=== PATIENT | male | born 1990 | race African-American/Black ===

== ENCOUNTER 2017-04-30 16:51 | Emergency (ER) | payer SELFPAY ==
[2017-04-30 16:58] VITALS: BP 131/73; PULSE 95; TEMP 98; BMI 28.1
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
== END 2017-04-30 21:09 | disposition home or self-care (01) ==
LOC: JERFT 16:51
DX: M19.122 Post-traumatic osteoarthritis, left elbow (principal); R20.2 Paresthesia of skin; M79.602 Pain in left arm; F17.210 Nicotine dependence, cigarettes, uncomplicated
CPT/HCPCS: 70450-TC; 72125-TC; 73070-TC-LT; 73090-TC-LT; 73110-TC-LT; 73130-TC-LT; 99281-25

== ENCOUNTER 2017-08-24 09:01 | Emergency (ER) | payer OTHER ==
[2017-08-24 09:10] VITALS: BP 129/69; PULSE 93; TEMP 97.9; BMI 29.0
[2017-08-24] MEDS ORDERED: AZITHROMYCIN 1 GM PACKET PO ONE (10:22)
--- NOTE | 2017-08-24 10:23 | PDOC ---
History of Present Illness - General Chief Complaint: Toothache Stated Complaint: Toothache Time Seen by Provider: 08/24/17 10:08 History Source: Patient Exam Limitations: No Limitations - History of Present Illness Initial Comments: 08/24/17 10:18 27 yr male states he had unprotected sexual intercourse on and today has urinary urgency and "a drip". Pt denies abd pain denies testicel pain or swelling. Pt has history of chlamydia GC in the past. Pt states last HIV test was 3 months ago and was negative. Past History - Past Medical History Allergies/Adverse Reactions: Allergies Allergy/AdvReac Type Severity Reaction Status Date / Time No Known Allergies Allergy Verified 08/24/17 09:10 Home Medications: Ambulatory Orders NK [No Known Home Medication] 03/22/16 COPD: No Other medical history: Marijuana/Percocet user - Immunization History Immunization Up to Date: Yes - Suicide/Smoking/Psychosocial Hx Smoking History: Current every day smoker Have you smoked in the past 12 months: Yes Number of Cigarettes Smoked Daily: 20 Cigars Per Day: 0 Information on smoking cessation initiated: Yes 'Breaking Loose' booklet given: 08/24/17 Hx Alcohol Use: No Drug/Substance Use Hx: Yes (Percocet, Marijuana) Substance Use Type: Marijuana, Opiates *Physical Exam - Vital Signs Last Vital Signs Temp Pulse Resp BP Pulse Ox 97.9 F 93 H 18 129/69 100 08/24/17 09:08 08/24/17 09:08 08/24/17 09:08 08/24/17 09:08 08/24/17 09:08 - Physical Exam General Appearance: Yes: Nourished, Appropriately Dressed HEENT: positive: EOMI, MICHAEL Gastrointestinal/Abdominal: positive: Normal Bowel Sounds, Soft. negative: Tender Male Genitalia: positive: normal genitalia, other (prostate not examined). negative: testicular tenderness, testicular mass, epididymus tender, inguinal hernia, hernia, CVAT Rectal Exam: positive: deferred Lymphatic: negative: Adenopathy Musculoskeletal: positive: Normal Inspection. negative: CVA Tenderness, CVA Tenderness (R) Extremity: positive: Normal Capillary Refill, Normal Inspection, Normal Range of Motion Integumentary: positive: Normal Color, Dry, Warm Neurologic: positive: Fully Oriented, Alert, Normal Mood/Affect, Normal Response , Motor Strength 5/5 Medical Decision Making - Medical Decision Making 08/24/17 10:20 cc: urinary urgency and penile drip no abd pain denies dysuria no discharge on exam no testicle pain or swelling no lesions will check UA, GC/ and urine culture pt refused RPR or HIV test today states he has apt next week with is PMD for a physical and will get that done there. will treat prophylacticaly pt understands the risks of unprotected intercourse *DC/Admit/Observation/Transfer Diagnosis at time of Disposition: H/O urinary frequency, Possible exposure to STD - Discharge Dispostion Disposition: HOME Condition at time of disposition: Fair - Referrals - Patient Instructions Additional Instructions: please follow with your doctor as planned for follow up and repeat HIV test always use condoms during sexual intercourse we will call you if the cultures are positive - Post Discharge Activity
[2017-08-24] MEDS ORDERED: AZITHROMYCIN 250 MG TABLET ONE (10:25)
[2017-08-24] MEDS ORDERED: LIDOCAINE HCL 1%, 10 MG/ML (20ML VIAL) ONE (10:45)
[2017-08-24 10:46] LABS: URINE APPEARANCE CLEAR; URINE BILIRUBIN NEGATIVE (NEGATIVE); URINE BLOOD NEGATIVE (NEGATIVE); URINE COLOR YELLOW; URINE GLUCOSE (UA) NEGATIVE (NEGATIVE); URINE KETONE NEGATIVE (NEGATIVE); URINE NITRITE NEGATIVE (NEGATIVE); URINE PROTEIN NEGATIVE (NEGATIVE); URINE UROBILINOGEN NEGATIVE mg/dL (0.2-1.0)
[2017-08-24 17:31] LABS: URINE LEUK ESTERASE Negative (NEGATIVE)
== END 2017-08-24 11:06 | disposition home or self-care (01) ==
LOC: JERFT 09:01
DX: Z20.2 Contact with and (suspected) exposure to infections with a predominantly sexual mode of transmission (principal)
CPT/HCPCS: 36415; 81003; 87491; 87591; 99281-25

== ENCOUNTER 2018-08-25 19:29 | Emergency (ER) | payer OTHER ==
[2018-08-25 20:04] VITALS: BP 119/76; PULSE 92; TEMP 98.1; BMI 26.6
[2018-08-25] MEDS ORDERED: CYCLOBENZAPRINE HCL 10 MG TABLET (FP) PO ONE (21:23)
[2018-08-25] MEDS ORDERED: IBUPROFEN 600 MG TABLET (FP) PO ONE ×2 (21:23→21:25)
[2018-08-25] MEDS ORDERED: CYCLOBENZAPRINE HCL 10 MG TABLET (FP) ONE (21:26)
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
== END 2018-08-25 22:09 | disposition home or self-care (01) ==
LOC: JERFT 19:29
DX: M54.5 Low back pain (principal); V43.62XA Car passenger injured in collision with other type car in traffic accident, initial encounter; Y92.414 Local residential or business street as the place of occurrence of the external cause; Y93.89 Activity, other specified; Y99.8 Other external cause status
CPT/HCPCS: 72100-TC-FY; 99281-25

== ENCOUNTER 2018-08-28 19:01 | Emergency (ER) | payer OTHER ==
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
[2018-08-28 19:30] VITALS: BP 122/80; PULSE 88; TEMP 98.9; BMI 26.6
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
== END 2018-08-28 20:05 | disposition home or self-care (01) ==
LOC: JER 19:01
DX: S16.1XXD Strain of muscle, fascia and tendon at neck level, subsequent encounter (principal); S39.012D Strain of muscle, fascia and tendon of lower back, subsequent encounter; S86.811D Strain of other muscle(s) and tendon(s) at lower leg level, right leg, subsequent encounter; S96.811D Strain of other specified muscles and tendons at ankle and foot level, right foot, subsequent encounter; V49.59XD Passenger injured in collision with other motor vehicles in traffic accident, subsequent encounter
CPT/HCPCS: 99281-25

== ENCOUNTER 2020-08-29 09:04 | Emergency (ER) | payer OTHER ==
[2020-08-29 09:24] VITALS: BP 116/57; PULSE 92; TEMP 97.9; BMI 25.8
[2020-08-29] MEDS ORDERED: AZITHROMYCIN 500 MG TABLET PO ONE (09:51)
[2020-08-29] MEDS ORDERED: AZITHROMYCIN 250 MG TABLET ONE (10:14)
[2020-08-29] MEDS ORDERED: cefTRIAXone SODIUM 1 GM VIAL ONE (10:15)
[2020-08-29 10:29] LABS: URINE APPEARANCE CLEAR; URINE BILIRUBIN NEGATIVE (NEGATIVE); URINE COLOR YELLOW; URINE GLUCOSE (UA) NEGATIVE (NEGATIVE); URINE KETONE NEGATIVE (NEGATIVE); URINE LEUK ESTERASE NEGATIVE (NEGATIVE); URINE NITRITE NEGATIVE (NEGATIVE); URINE PROTEIN NEGATIVE (NEGATIVE)
== END 2020-08-29 10:53 | disposition home or self-care (01) ==
LOC: JER 09:04
DX: Z20.2 Contact with and (suspected) exposure to infections with a predominantly sexual mode of transmission (principal)
CPT/HCPCS: 36415; 81003; 87086; 87491; 87591; 99284-25

== ENCOUNTER 2020-10-19 20:51 | Emergency (ER) | payer OTHER ==
[2020-10-19 20:57] VITALS: BP 124/72; PULSE 90; TEMP 98.2; BMI 29.0
[2020-10-19] MEDS ORDERED: AZITHROMYCIN 500 MG TABLET PO ONE (21:48)
[2020-10-19] MEDS ORDERED: AZITHROMYCIN 250 MG TABLET ONE (21:56)
[2020-10-19] MEDS ORDERED: LIDOCAINE HCL/PF 1% SDV 5ML VIAL ONE (21:56)
[2020-10-19 22:28] LABS: PH,URINE 5.5 (5.0-8.0); URINE APPEARANCE CLEAR; URINE BILIRUBIN NEGATIVE (NEGATIVE); URINE COLOR YELLOW; URINE GLUCOSE (UA) NEGATIVE (NEGATIVE); URINE KETONE TRACE (NEGATIVE); URINE LEUK ESTERASE NEGATIVE (NEGATIVE); URINE NITRITE NEGATIVE (NEGATIVE); URINE PROTEIN NEGATIVE (NEGATIVE)
== END 2020-10-19 22:21 | disposition home or self-care (01) ==
LOC: JERFT 20:51
DX: Z20.2 Contact with and (suspected) exposure to infections with a predominantly sexual mode of transmission (principal)
CPT/HCPCS: 36415; 81003; 87086; 87491; 87591; 99284-25

== ENCOUNTER 2021-02-08 21:16 | Emergency (ER) | payer OTHER ==
[2021-02-08 21:31] VITALS: BP 100/52; PULSE 83; TEMP 97.5; BMI 28.1
[2021-02-08] MEDS ORDERED: NAPROXEN 500 MG TABLET PO ONE (22:18)
== END 2021-02-08 22:41 | disposition home or self-care (01) ==
LOC: JERFT 21:16
DX: M25.511 Pain in right shoulder (principal); M25.521 Pain in right elbow
CPT/HCPCS: 73030-TC-RT-FY; 73070-TC-RT-FY; 99284-25